=== PATIENT | male | born 1975 | race African-American/Black ===

== ENCOUNTER 2017-01-25 08:31 | Inpatient (IN) | payer OTHER ==
[2017-01-25 10:03] VITALS: BMI 36.4
[2017-01-25] MEDS ORDERED: chlordiazePOXIDE HCL 25 MG CAPSULE PO PRN (11:57)
[2017-01-25] MEDS ORDERED: LOPERAMIDE HCL 2 MG CAPSULE PO PRN (11:57)
[2017-01-25] MEDS ORDERED: hydrOXYzine PAMOATE 50 MG CAPSULE (FP) PO PRN (11:57)
[2017-01-25] MEDS ORDERED: ACETAMINOPHEN 325 MG TABLET (FP) PO PRN (11:57)
[2017-01-25] MEDS ORDERED: guaiFENesin/D-METHORPHAN HB 10 ML UNIT-DOSE CUPS PO PRN (11:57)
[2017-01-25] MEDS ORDERED: MAGNESIUM HYDROX 2400MG/30ML ORAL SUSPENSION 30 ML CUP PO PRN (11:57)
[2017-01-25] MEDS ORDERED: IBUPROFEN 600 MG TABLET (FP) PO PRN (11:57)
[2017-01-25] MEDS ORDERED: P-EPHED 60MG/TRIPROLIDI 2.5MG TABLET PO PRN (11:57)
[2017-01-25] MEDS ORDERED: MAG HYDROX/AL HYDROX/SIMETH 30 ML UNIT-DOSE CUP PO PRN (11:57)
[2017-01-25] MEDS ORDERED: NICOTINE POLACRILEX 4 MG GUM BUC PRN (11:57)
[2017-01-25] MEDS ORDERED: MAGNESIUM CITRATE 300 ML BOTTLE PO PRN (11:57)
[2017-01-25] MEDS ORDERED: MENTHOL/PHENOL 1 EACH UD MM PRN (11:57)
--- NOTE | 2017-01-25 11:57 | HP ---
CIWA Score - CIWA Score Nausea/Vomitin-Mild Nausea/No Vomiting Muscle Tremors: 4-Moderate,w/Arms Extend Anxiety: 3 Agitation: 4-Moderately Restless Paroxysmal Sweats: 3 Orientation: 0-Oriented Tacttile Disturbances: 0-None Auditory Disturbances: 0-None Visual Disturbances: 0-None Headache: 1-Very Mild CIWA-Ar Total Score: 16 Admission ROS BHS - HPI Chief Complaint: I need the help Allergies/Adverse Reactions: Allergies Allergy/AdvReac Type Severity Reaction Status Date / Time No Known Allergies Allergy Verified 01/25/17 10:02 History of Present Illness: Pt is a 41yr old male with a history of alcohol dependence seeking detox for treatment. Exam Limitations: No Limitations - Ebola screening Have you traveled outside of the country in the last 21 days: No Have you had contact with anyone from an Ebola affected area: No Have you been sick,other than usual withdrawal symptoms: No Do you have a fever: No - Review of Systems Constitutional: Chills, Diaphoresis, Night Sweats, Changes in sleep EENT: reports: No Symptoms Reported Respiratory: reports: No Symptoms reported Cardiac: reports: No Symptoms Reported GI: reports: Diarrhea, Poor Fluid Intake, Indigestion : reports: No Symptoms Reported Musculoskeletal: reports: Back Pain, Joint Pain Integumentary: reports: Flushing, Sweating Neuro: reports: Tingling, Tremors Endocrine: reports: Flushing Hematology: reports: No Symptoms Reported Psychiatric: reports: Judgement Intact, Mood/Affect Appropiate, Orientated x3, Agitated, Anxious Other Systems: Reviewed and Negative Patient History - Patient Medical History Hx Anemia: No Hx Asthma: No Hx Chronic Obstructive Pulmonary Disease (COPD): No Hx Cancer: No Hx Cardiac Disorders: No Hx Congestive Heart Failure: No Hx Hypertension: No Hx Hypercholesterolemia: No Hx Pacemaker: No HX Cerebrovascular Accident: No Hx Seizures: No Hx Dementia: No Hx Diabetes: No Hx Gastrointestinal Disorders: No Hx Liver Disease: No Hx Genitourinary Disorders: No Hx Sexually Transmitted Disorders: No Hx Renal Disease (ESRD): No Hx Thyroid Disease: No Hx Human Immunodeficiency Virus (HIV): No (negative) Hx Hepatitis C: No (negative) Hx Depression: Yes Hx Suicide Attempt: No Hx Bipolar Disorder: No Hx Schizophrenia: No Other Medical History: insomnia/anxiety - Patient Surgical History Past Surgical History: No Hx Neurologic Surgery: No Hx Cataract Extraction: No Hx Cardiac Surgery: No Hx Lung Surgery: No Hx Breast Surgery: No Hx Breast Biopsy: No Hx Abdominal Surgery: No Hx Appendectomy: No Hx Cholecystectomy: No Hx Genitourinary Surgery: No Hx Section: No Hx Orthopedic Surgery: No Anesthesia Reaction: No - PPD History Previous Implant?: Yes Documented Results: Negative w/proof Implanted On Prior [facility] Admission?: Yes Date: 11/21/15 PPD to be Administered?: Yes - Reproductive History Patient is a Female of Child Bearing Age (11 -55 yrs old): No - Smoking Cessation Smoking history: Current every day smoker Have you smoked in the past 12 months: Yes Aproximately how many cigarettes per day: 10 Hx Chewing Tobacco Use: No Initiated information on smoking cessation: Yes 'Breaking Loose' booklet given: 01/25/17 - Substance & Tx. History Hx Alcohol Use: Yes Hx Substance Use: No Substance Use Type: Alcohol Hx Substance Use Treatment: Yes (last detox [facility] 01/2016) - Substances Abused Alcohol Route: Oral Frequency: Daily Amount used: beer(2-3 6pks-12 oz) Age of first use: 17 Date of Last Use: 01/25/17 Family Disease History - Family Disease History Family Disease History: CA: Father (LUNG,ALCOHOLIC), Mother (BREAST) Admission Physical Exam BHS - Vital Signs Vital Signs: Vital Signs - 24 hr 01/25/17 10:01 Temperature 97.9 F Pulse Rate 108 H Respiratory 20 Rate Blood Pressure 140/72 - Physical General Appearance: Yes: Appropriately Dressed, Obese, Tremorous, Sweating, Anxious HEENTM: Yes: Hearing grossly Normal Respiratory: Yes: Lungs Clear, Normal Breath Sounds, No Respiratory Distress Neck: Yes: No masses,lesions,Nodules Breast: Yes: Within Normal Limits Cardiology: Yes: Regular Rhythm, Regular Rate, S1, S2 Abdominal: Yes: Normal Bowel Sounds, Non Tender, Soft Genitourinary: Yes: Within Normal Limits Back: Yes: Normal Inspection Musculoskeletal: Yes: full range of Motion, Back pain Extremities: Yes: Normal Capillary Refill, Tremors Neurological: Yes: Fully Oriented, Alert, Normal Response Integumentary: Yes: Normal Color Lymphatic: Yes: Within Normal Limits - Diagnostic (1) Alcohol dependence with uncomplicated withdrawal Current Visit: Yes Status: Chronic (2) Nicotine dependence Current Visit: Yes Status: Chronic Qualifiers: Nicotine product type: cigarettes Substance use status: uncomplicated Qualified Code(s): F17.210 - Nicotine dependence, cigarettes, uncomplicated (3) Chronic back pain Current Visit: Yes Status: Chronic Qualifiers: Back pain location: low back pain Back pain laterality: bilateral Sciatica presence: without sciatica Qualified Code(s): M54.5 - Low back pain; G89.29 - Other chronic pain Cleared for Admission [facility] - Detox or Rehab [facility] Level of Care: Medically Managed Detox Regimen/Protocol: Librium [facility] Breath Alcohol Content Breath Alcohol Content: 0 Urine Drug Screen - Results Drug Screen Negative: Yes
[2017-01-25] MEDS ORDERED: chlordiazePOXIDE HCL 25 MG CAPSULE PO ONE (13:03)
--- NOTE | 2017-01-25 14:50 | EKG ---
Test Reason : Blood Pressure : / mmHG Vent. Rate : 088 BPM Atrial Rate : 088 BPM P-R Int : 124 ms QRS Dur : 090 ms QT Int : 368 ms P-R-T Axes : 064 022 028 degrees QTc Int : 445 ms NORMAL SINUS RHYTHM NORMAL ECG NO PREVIOUS ECGS AVAILABLE Confirmed by DENNY YAÑEZ MD ([id number]) on 01/25/2017 2:49:30 PM Referred By: Lamont Kilpatrick Confirmed By:DENNY YAÑEZ MD
[2017-01-25 17:02] LABS: URINE APPEARANCE CLEAR; URINE BILIRUBIN NEGATIVE (NEGATIVE); URINE BLOOD 1+ (NEGATIVE); URINE COLOR YELLOW; URINE GLUCOSE (UA) NEGATIVE (NEGATIVE); URINE KETONE NEGATIVE (NEGATIVE); URINE LEUK ESTERASE NEGATIVE (NEGATIVE); URINE NITRITE NEGATIVE (NEGATIVE); URINE PROTEIN NEGATIVE (NEGATIVE); URINE UROBILINOGEN NEGATIVE mg/dL (0.2-1.0)
--- NOTE | 2017-01-25 17:19 | CONSULT ---
[facility] Psychiatric Consult - Data Date of interview: 01/25/17 Admission source: [facility] Identifying data: Another admission to [facility] for this 41 y/o AA male seeking detox treatment on for alcohol dependence.Patient is single,a father of two,domiciled,unemployed and supported on food stamps. Substance Abuse History: Fully discussed with the patient in this session.Mr Lane confirms this report. Smoking Cessation. Smoking history: Current every day smoker. Have you smoked in the past 12 months: Yes. Aproximately how many cigarettes per day: 10. Hx Chewing Tobacco Use: No. Initiated information on smoking cessation: Yes. 'Breaking Loose' booklet given: . - Substance & Tx. History. Hx Alcohol Use: Yes. Hx Substance Use: No. Substance Use Type: Alcohol. Hx Substance Use Treatment: Yes (last detox [facility] 01/2016). - Substances Abused. Alcohol. Route: Oral. Frequency: Daily. Amount used: beer(2-3 6pks-12 oz). Age of first use: 17. Date of Last Use: 01/25/17 Medical History: Patient endorses good general health.Noted history of herpes genitalis. Psychiatric History: No reported history of psychiatric hospitalizations.Patient endorses the diagnosis of MDD.Outpatient psychiatric services are rendered at [facility] in the [place].Maintained on remeron 45 mg/hs.Last took that medication a week ago as per self-report.Mr Lane admits to a history of one suicide attempt via wrist- cutting (2001). Physical/Sexual Abuse/Trauma History: Patient denies. Additional Comment: Drug Screen is negative. Mental Status Exam - Mental Status Exam Alert and Oriented to: Time, Place, Person Cognitive Function: Good Patient Appearance: Well Groomed Mood: Hopeful, Euthymic Affect: Appropriate, Normal Range Patient Behavior: Appropriate, Cooperative Speech Pattern: Clear Voice Loudness: Normal Thought Process: Goal Oriented Thought Disorder: Not Present Hallucinations: Denies Homicidal Ideation: Denies Insight/Judgement: Poor Sleep: Poorly, Difficulty falling asleep Appetite: Good Muscle strength/Tone: Normal Gait/Station: Normal Psychiatric Findings - Problem List ([place] 1, 2,3) (1) Alcohol dependence with uncomplicated withdrawal Current Visit: Yes Status: Acute (2) Nicotine dependence Current Visit: Yes Status: Acute Qualifiers: Nicotine product type: cigarettes Substance use status: uncomplicated Qualified Code(s): F17.210 - Nicotine dependence, cigarettes, uncomplicated (3) Substance induced mood disorder Current Visit: Yes Status: Acute (4) Chronic back pain Current Visit: Yes Status: Chronic Qualifiers: Back pain location: low back pain Back pain laterality: bilateral Sciatica presence: without sciatica Qualified Code(s): M54.5 - Low back pain; G89.29 - Other chronic pain (5) Insomnia Current Visit: Yes Status: Acute - Initial Treatment Plan Initial Treatment Plan: Psychoeducation.Detoxification.Remeron 15 mg po hs.Side effects/benefits discussed with the patient.Titration to follow as clinically indicated.He agrees with this careplan.Observation.Review of recent pharmacy claims shows that the last script for 45 mg of remeron was filled at [facility] on 11/18/16.Adherence remains questionable.
[2017-01-25] MEDS: chlordiazePOXIDE HCL 25 MG CAPSULE PO SCH ×2 (17:24→22:05)
[2017-01-25 18:48] LABS: URINE MUCUS RARE; URINE RBC 2 /hpf (0-3)
[2017-01-25] MEDS: THIAMINE HCL 100 MG TABLET (FP) PO SCH (22:05)
[2017-01-25] MEDS: MIRTAZAPINE 15 MG TABLET (FP) PO SCH (22:05)
[2017-01-26] MEDS: chlordiazePOXIDE HCL 25 MG CAPSULE PO SCH ×4 (05:29→22:02)
[2017-01-26 10:03] LABS: MCH 28.3 pg (25.7-33.7); MEAN CELL VOLUME 88.5 fl (80-96); MEAN PLT VOLUME 9.5 fl (7.5-11.1); PLATELET COUNT 246 K/MM3 (134-434); RDW 12.9 % (11.9-15.9); WHITE BLOOD COUNT 8.3 K/mm3 (4.0-10.0)
[2017-01-26 10:35] LABS: ALK PHOS 93 U/L (45-117); ANION GAP 8 (8-16); BILIRUBIN,TOTAL 0.5 mg/dL (0.2-1.0); CALCIUM 9.5 mg/dL (8.5-10.1); CO2 27 mmol/L (21-32); CREATININE 1.3 mg/dL (0.7-1.3); GLUCOSE,RANDOM 94 mg/dL (74-106); SGOT/AST 25 U/L (15-37); SGPT/ALT 34 U/L (12-78); TOT PROT 8.2 g/dl (6.4-8.2)
[2017-01-26] MEDS: NICOTINE 21 MG/24 HOURS TOPICAL PATCH TD SCH (10:41)
[2017-01-26] MEDS: PRENATAL VITAMINS W/ FOLIC ACID TABLET (FP) PO SCH (10:41)
--- NOTE | 2017-01-26 10:57 | PN ---
[facility] CIWA - CIWA Score Nausea/Vomitin-No Nausea/No Vomiting Muscle Tremors: 4-Moderate,w/Arms Extend Anxiety: 4-Mod. Anxious/Guarded Agitation: 4-Moderately Restless Paroxysmal Sweats: 1-Minimal Palms Moist Orientation: 0-Oriented Tacttile Disturbances: 3-Moderate Itch/Numb/Burn Auditory Disturbances: 0-None Visual Disturbances: 0-None Headache: 0-None Present CIWA-Ar Total Score: 16 S Progress Note (SOAP) Subjective: ANXIETY,TREMORS,SWEATS,INTERMITTENT SLEEP. Objective: 01/26/17 10:56 Vital Signs Temperature 97.8 F 01/26/17 09:27 Pulse Rate 76 01/26/17 09:27 Respiratory Rate 18 01/26/17 09:27 Blood Pressure 117/82 01/26/17 09:27 O2 Sat by Pulse Oximetry (%) Laboratory Last Values WBC 8.3 K/mm3 (4.0-10.0) D 01/26/17 06:00 RBC 5.25 M/mm3 (4.00-5.60) 01/26/17 06:00 Hgb 14.9 GM/dL (11.7-16.9) 01/26/17 06:00 Hct 46.5 % (35.4-49) 01/26/17 06:00 MCV 88.5 fl (80-96) 01/26/17 06:00 MCH 28.3 pg (25.7-33.7) 01/26/17 06:00 MCHC 32.0 g/dl (32.0-35.9) 01/26/17 06:00 RDW 12.9 % (11.9-15.9) 01/26/17 06:00 Plt Count 246 K/MM3 (134-434) 01/26/17 06:00 MPV 9.5 fl (7.5-11.1) 01/26/17 06:00 Sodium 140 mmol/L (136-145) 01/26/17 06:00 Potassium 4.4 mmol/L (3.5-5.1) 01/26/17 06:00 Chloride 105 mmol/L (98-107) 01/26/17 06:00 Carbon Dioxide 27 mmol/L (21-32) 01/26/17 06:00 Anion Gap 8 (8-16) 01/26/17 06:00 BUN 9 mg/dL (7-18) D 01/26/17 06:00 Creatinine 1.3 mg/dL (0.7-1.3) D 01/26/17 06:00 Creat Clearance w eGFR > 60 (>60) 01/26/17 06:00 Random Glucose 94 mg/dL (74-106) 01/26/17 06:00 Calcium 9.5 mg/dL (8.5-10.1) 01/26/17 06:00 Total Bilirubin 0.5 mg/dL (0.2-1.0) D 01/26/17 06:00 AST 25 U/L (15-37) D 01/26/17 06:00 ALT 34 U/L (12-78) D 01/26/17 06:00 Alkaline Phosphatase 93 U/L (45-117) D 01/26/17 06:00 Total Protein 8.2 g/dl (6.4-8.2) D 01/26/17 06:00 Albumin 4.0 g/dl (3.4-5.0) 01/26/17 06:00 Urine Color Yellow 01/25/17 14:00 Urine Appearance Clear 01/25/17 14:00 Urine pH 6.0 (5.0-8.0) 01/25/17 14:00 Ur Specific [place] 1.015 (1.005-1.025) 01/25/17 14:00 Urine Protein Negative (NEGATIVE) 01/25/17 14:00 Urine Glucose (UA) Negative (NEGATIVE) 01/25/17 14:00 Urine Ketones Negative (NEGATIVE) 01/25/17 14:00 Urine Blood 1+ (NEGATIVE) H 01/25/17 14:00 Urine Nitrite Negative (NEGATIVE) 01/25/17 14:00 Urine Bilirubin Negative (NEGATIVE) 01/25/17 14:00 Urine Urobilinogen Negative mg/dL (0.2-1.0) 01/25/17 14:00 Ur Leukocyte Esterase Negative (NEGATIVE) 01/25/17 14:00 Urine RBC 2 /hpf (0-3) 01/25/17 14:00 Urine WBC None /hpf (3-5) 01/25/17 14:00 Ur Epithelial Cells Rare /hpf (FEW) 01/25/17 14:00 Urine Mucus Rare 01/25/17 14:00 Assessment: 01/26/17 10:57 WITHDRAWAL SX Plan: CONTINUE DETOX
[2017-01-26] MEDS: THIAMINE HCL 100 MG TABLET (FP) PO SCH (22:01)
[2017-01-26] MEDS: MIRTAZAPINE 15 MG TABLET (FP) PO SCH (22:01)
[2017-01-27] MEDS: chlordiazePOXIDE HCL 25 MG CAPSULE PO SCH ×2 (05:29→10:23)
[2017-01-27] MEDS: PRENATAL VITAMINS W/ FOLIC ACID TABLET (FP) PO SCH (10:23)
[2017-01-27] MEDS: NICOTINE 21 MG/24 HOURS TOPICAL PATCH TD SCH (10:24)
--- NOTE | 2017-01-27 10:29 | PN ---
[facility] CIWA - CIWA Score Nausea/Vomitin-No Nausea/No Vomiting Muscle Tremors: 4-Moderate,w/Arms Extend Anxiety: 4-Mod. Anxious/Guarded Agitation: 4-Moderately Restless Paroxysmal Sweats: 1-Minimal Palms Moist Orientation: 0-Oriented Tacttile Disturbances: 3-Moderate Itch/Numb/Burn Auditory Disturbances: 0-None Visual Disturbances: 0-None Headache: 0-None Present CIWA-Ar Total Score: 16 BHS Progress Note (SOAP) Subjective: ANXIETY,SWEATS,TREMORS,NAUSEA. Objective: 01/27/17 10:26 Vital Signs Temperature 97.5 F L 01/27/17 06:18 Pulse Rate 83 01/27/17 06:18 Respiratory Rate 18 01/27/17 06:18 Blood Pressure 112/79 01/27/17 06:18 O2 Sat by Pulse Oximetry (%) Laboratory Last Values WBC 8.3 K/mm3 (4.0-10.0) D 01/26/17 06:00 RBC 5.25 M/mm3 (4.00-5.60) 01/26/17 06:00 Hgb 14.9 GM/dL (11.7-16.9) 01/26/17 06:00 Hct 46.5 % (35.4-49) 01/26/17 06:00 MCV 88.5 fl (80-96) 01/26/17 06:00 MCH 28.3 pg (25.7-33.7) 01/26/17 06:00 MCHC 32.0 g/dl (32.0-35.9) 01/26/17 06:00 RDW 12.9 % (11.9-15.9) 01/26/17 06:00 Plt Count 246 K/MM3 (134-434) 01/26/17 06:00 MPV 9.5 fl (7.5-11.1) 01/26/17 06:00 Sodium 140 mmol/L (136-145) 01/26/17 06:00 Potassium 4.4 mmol/L (3.5-5.1) 01/26/17 06:00 Chloride 105 mmol/L (98-107) 01/26/17 06:00 Carbon Dioxide 27 mmol/L (21-32) 01/26/17 06:00 Anion Gap 8 (8-16) 01/26/17 06:00 BUN 9 mg/dL (7-18) D 01/26/17 06:00 Creatinine 1.3 mg/dL (0.7-1.3) D 01/26/17 06:00 Creat Clearance w eGFR > 60 (>60) 01/26/17 06:00 Random Glucose 94 mg/dL (74-106) 01/26/17 06:00 Calcium 9.5 mg/dL (8.5-10.1) 01/26/17 06:00 Total Bilirubin 0.5 mg/dL (0.2-1.0) D 01/26/17 06:00 AST 25 U/L (15-37) D 01/26/17 06:00 ALT 34 U/L (12-78) D 01/26/17 06:00 Alkaline Phosphatase 93 U/L (45-117) D 01/26/17 06:00 Total Protein 8.2 g/dl (6.4-8.2) D 01/26/17 06:00 Albumin 4.0 g/dl (3.4-5.0) 01/26/17 06:00 Urine Color Yellow 01/25/17 14:00 Urine Appearance Clear 01/25/17 14:00 Urine pH 6.0 (5.0-8.0) 01/25/17 14:00 Ur Specific [place] 1.015 (1.005-1.025) 01/25/17 14:00 Urine Protein Negative (NEGATIVE) 01/25/17 14:00 Urine Glucose (UA) Negative (NEGATIVE) 01/25/17 14:00 Urine Ketones Negative (NEGATIVE) 01/25/17 14:00 Urine Blood 1+ (NEGATIVE) H 01/25/17 14:00 Urine Nitrite Negative (NEGATIVE) 01/25/17 14:00 Urine Bilirubin Negative (NEGATIVE) 01/25/17 14:00 Urine Urobilinogen Negative mg/dL (0.2-1.0) 01/25/17 14:00 Ur Leukocyte Esterase Negative (NEGATIVE) 01/25/17 14:00 Urine RBC 2 /hpf (0-3) 01/25/17 14:00 Urine WBC None /hpf (3-5) 01/25/17 14:00 Ur Epithelial Cells Rare /hpf (FEW) 01/25/17 14:00 Urine Mucus Rare 01/25/17 14:00 RPR Titer Nonreactive (NONREACTIVE) 01/26/17 06:00 Assessment: 01/27/17 10:26 WITHDRAWAL SX CHRIS JONES DIRECTED. Plan: CONTINUE DETOX
[2017-01-27] MEDS: chlordiazePOXIDE 5 MG CAPSULE PO SCH ×2 (16:50→22:19)
[2017-01-27] MEDS: THIAMINE HCL 100 MG TABLET (FP) PO SCH (22:19)
[2017-01-27] MEDS: diphenhydrAMINE HCL 50 MG CAPSULE PO PRN (22:19)
[2017-01-27] MEDS: MIRTAZAPINE 15 MG TABLET (FP) PO SCH (22:19)
[2017-01-28] MEDS: chlordiazePOXIDE 5 MG CAPSULE PO SCH ×2 (05:39→10:25)
[2017-01-28] MEDS: NICOTINE 21 MG/24 HOURS TOPICAL PATCH TD SCH (10:25)
[2017-01-28] MEDS: PRENATAL VITAMINS W/ FOLIC ACID TABLET (FP) PO SCH (10:25)
[2017-01-28] MEDS: RANITIDINE HCL 150 MG TABLET (FP) PO SCH ×2 (12:34→22:28)
--- NOTE | 2017-01-28 13:18 | PN ---
[facility] Progress Note (SOAP) Subjective: Interrupted sleep, Stomach Cramping, Diarrhea, Body Aches, Tremors. Objective: PT. A & O X 3, OBSERVED AMBULATING ON UNIT. NO ACUTE DISTRESS. 01/28/17 13:16 Vital Signs Temperature 97.0 F L 01/28/17 09:09 Pulse Rate 71 01/28/17 09:09 Respiratory Rate 16 01/28/17 09:09 Blood Pressure 122/80 01/28/17 09:09 O2 Sat by Pulse Oximetry (%) Laboratory Tests 01/25/17 01/26/17 01/26/17 14:00 06:00 06:00 WBC 8.3 D RBC 5.25 Hgb 14.9 Hct 46.5 MCV 88.5 MCH 28.3 MCHC 32.0 RDW 12.9 Plt Count 246 MPV 9.5 Sodium 140 Potassium 4.4 Chloride 105 Carbon Dioxide 27 Anion Gap 8 BUN 9 D Creatinine 1.3 D Creat Clearance w eGFR > 60 Random Glucose 94 Calcium 9.5 Total Bilirubin 0.5 D AST 25 D ALT 34 D Alkaline Phosphatase 93 D Total Protein 8.2 D Albumin 4.0 Urine Color Yellow Urine Appearance Clear Urine pH 6.0 Ur Specific [place] 1.015 Urine Protein Negative Urine Glucose (UA) Negative Urine Ketones Negative Urine Blood 1+ H Urine Nitrite Negative Urine Bilirubin Negative Urine Urobilinogen Negative Ur Leukocyte Esterase Negative Urine RBC 2 Urine WBC None Ur Epithelial Cells Rare Urine Mucus Rare RPR Titer 01/26/17 06:00 WBC RBC Hgb Hct MCV MCH MCHC RDW Plt Count MPV Sodium Potassium Chloride Carbon Dioxide Anion Gap BUN Creatinine Creat Clearance w eGFR Random Glucose Calcium Total Bilirubin AST ALT Alkaline Phosphatase Total Protein Albumin Urine Color Urine Appearance Urine pH Ur Specific [place] Urine Protein Urine Glucose (UA) Urine Ketones Urine Blood Urine Nitrite Urine Bilirubin Urine Urobilinogen Ur Leukocyte Esterase Urine RBC Urine WBC Ur Epithelial Cells Urine Mucus RPR Titer Nonreactive LABS NOTED. Assessment: 01/28/17 13:16 WITHDRAWAL SYMPTOMS. Plan: CONTINUE DETOX. PRN IMMODIUM FOR DIARRHEA.
[2017-01-28] MEDS: chlordiazePOXIDE HCL 10 MG CAPSULE PO SCH ×2 (17:44→22:28)
[2017-01-28] MEDS: THIAMINE HCL 100 MG TABLET (FP) PO SCH (22:28)
[2017-01-28] MEDS: MIRTAZAPINE 15 MG TABLET (FP) PO SCH (22:28)
[2017-01-28] MEDS: diphenhydrAMINE HCL 50 MG CAPSULE PO PRN (22:28)
[2017-01-29] MEDS: chlordiazePOXIDE HCL 10 MG CAPSULE PO SCH (05:45)
[2017-01-29 09:38] VITALS: BP 118/82; PULSE 83; TEMP 96.7
[2017-01-29] MEDS: RANITIDINE HCL 150 MG TABLET (FP) PO SCH (09:53)
[2017-01-29] MEDS: NICOTINE 21 MG/24 HOURS TOPICAL PATCH TD SCH (09:53)
[2017-01-29] MEDS: PRENATAL VITAMINS W/ FOLIC ACID TABLET (FP) PO SCH (09:53)
--- NOTE | 2017-01-29 12:59 | DS ---
[facility] Detox Discharge Summary Admission Date: 01/25/17 Discharge Date: 01/29/17 - History Present History: Alcohol Dependence Pertinent Past History: GERD - Physical Exam Results Vital Signs: Vital Signs Temperature 96.7 F L 01/29/17 09:37 Pulse Rate 83 01/29/17 09:37 Respiratory Rate 18 01/29/17 09:37 Blood Pressure 118/82 01/29/17 09:37 O2 Sat by Pulse Oximetry (%) Pertinent Admission Physical Exam Findings: Withdrawal symptoms Laboratory Tests 01/25/17 01/26/17 01/26/17 14:00 06:00 06:00 WBC 8.3 D RBC 5.25 Hgb 14.9 Hct 46.5 MCV 88.5 MCH 28.3 MCHC 32.0 RDW 12.9 Plt Count 246 MPV 9.5 Sodium 140 Potassium 4.4 Chloride 105 Carbon Dioxide 27 Anion Gap 8 BUN 9 D Creatinine 1.3 D Creat Clearance w eGFR > 60 Random Glucose 94 Calcium 9.5 Total Bilirubin 0.5 D AST 25 D ALT 34 D Alkaline Phosphatase 93 D Total Protein 8.2 D Albumin 4.0 Urine Color Yellow Urine Appearance Clear Urine pH 6.0 Ur Specific [place] 1.015 Urine Protein Negative Urine Glucose (UA) Negative Urine Ketones Negative Urine Blood 1+ H Urine Nitrite Negative Urine Bilirubin Negative Urine Urobilinogen Negative Ur Leukocyte Esterase Negative Urine RBC 2 Urine WBC None Ur Epithelial Cells Rare Urine Mucus Rare RPR Titer 01/26/17 06:00 WBC RBC Hgb Hct MCV MCH MCHC RDW Plt Count MPV Sodium Potassium Chloride Carbon Dioxide Anion Gap BUN Creatinine Creat Clearance w eGFR Random Glucose Calcium Total Bilirubin AST ALT Alkaline Phosphatase Total Protein Albumin Urine Color Urine Appearance Urine pH Ur Specific [place] Urine Protein Urine Glucose (UA) Urine Ketones Urine Blood Urine Nitrite Urine Bilirubin Urine Urobilinogen Ur Leukocyte Esterase Urine RBC Urine WBC Ur Epithelial Cells Urine Mucus RPR Titer Nonreactive Labs noted - Treatment Hospital Course: Detox Protocol Followed, Detoxed Safely, Responded well, Discharged Condition Good - Medication Discharge Medications: Ambulatory Orders Mirtazapine [Remeron -] 30 mg PO DAILY #30 tablet 01/25/17 Mirtazapine [Remeron -] 45 mg PO HS 01/25/17 - Diagnosis (1) Alcohol dependence with uncomplicated withdrawal Status: Acute (2) Nicotine dependence Status: Chronic Qualifiers: Nicotine product type: cigarettes Substance use status: uncomplicated Qualified Code(s): F17.210 - Nicotine dependence, cigarettes, uncomplicated (3) Depressive disorder Status: Chronic (4) GERD (gastroesophageal reflux disease) Status: Chronic - AMA Did Patient Leave Against Medical Advice: No
== END 2017-01-29 10:12 | disposition home or self-care (01) | DRG 775 ==
LOC: YASAS 08:31 → Y3N 12:47
PROVIDERS: ADMIT Internal Medicine; ATTEND Internal Medicine
PROC: HZ2ZZZZ Detoxification Services for Substance Abuse Treatment (ICD-10-PCS; principal; 2017-01-25)
DX: F10.230 Alcohol dependence with withdrawal, uncomplicated (principal); F17.210 Nicotine dependence, cigarettes, uncomplicated; F19.24 Other psychoactive substance dependence with psychoactive substance-induced mood disorder; F32.9 Major depressive disorder, single episode, unspecified; K21.9 Gastro-esophageal reflux disease without esophagitis; M54.5 Low back pain; G89.29 Other chronic pain; E66.9 Obesity, unspecified; Z68.36 Body mass index [BMI] 36.0-36.9, adult
CPT/HCPCS: 36415; 80053; 81003; 81015; 85027; 86593; 93005; 93010

== ENCOUNTER 2017-02-07 12:43 | Inpatient (IN) | payer OTHER ==
[2017-02-07 14:16] VITALS: BMI 37.8
--- NOTE | 2017-02-07 19:35 | HP ---
Admission ROS [facility] - [facility] Chief Complaint: I WANT TO GO TO REHAB Allergies/Adverse Reactions: Allergies Allergy/AdvReac Type Severity Reaction Status Date / Time No Known Allergies Allergy Verified 01/25/17 10:02 History of Present Illness: 42 YEARS OLD MALE WITH LONG HISTORY OF ALCOHOL NICOTINE DEPENDENCE DENIES MEDICAL ISSUE HAS DEPRESSION IS ADMITTED TO REHAB Exam Limitations: No Limitations - Ebola screening Have you traveled outside of the country in the last 21 days: No Have you had contact with anyone from an Ebola affected area: No Have you been sick,other than usual withdrawal symptoms: No Do you have a fever: No - Review of Systems Constitutional: Weight Stable EENT: reports: No Symptoms Reported Respiratory: reports: No Symptoms reported Cardiac: reports: No Symptoms Reported GI: reports: No Symptoms Reported : reports: No Symptoms Reported Musculoskeletal: reports: Back Pain Integumentary: reports: No Symptoms Reported Neuro: reports: No Symptoms reported Endocrine: reports: No Symptoms Reported Hematology: reports: No Symptoms Reported Psychiatric: reports: Judgement Intact, Orientated x3, Depressed Other Systems: Reviewed and Negative Patient History - Patient Medical History Hx Anemia: No Hx Asthma: No Hx Chronic Obstructive Pulmonary Disease (COPD): No Hx Cancer: No Hx Cardiac Disorders: No Hx Congestive Heart Failure: No Hx Hypertension: No Hx Hypercholesterolemia: No Hx Pacemaker: No HX Cerebrovascular Accident: No Hx Seizures: No Hx Dementia: No Hx Diabetes: No Hx Gastrointestinal Disorders: No Hx Liver Disease: No Hx Genitourinary Disorders: No Hx Sexually Transmitted Disorders: No Hx Renal Disease (ESRD): No Hx Thyroid Disease: No Hx Human Immunodeficiency Virus (HIV): No (negative) Hx Hepatitis C: No (negative) Hx Depression: Yes Hx Suicide Attempt: No Hx Bipolar Disorder: No Hx Schizophrenia: No - Patient Surgical History Past Surgical History: No Hx Neurologic Surgery: No Hx Cataract Extraction: No Hx Cardiac Surgery: No Hx Lung Surgery: No Hx Breast Surgery: No Hx Breast Biopsy: No Hx Abdominal Surgery: No Hx Appendectomy: No Hx Cholecystectomy: No Hx Genitourinary Surgery: No Hx Orthopedic Surgery: No - PPD History Previous Implant?: Yes Documented Results: Negative w/proof Implanted On Prior R Admission?: Yes Date: 01/27/17 Results: 0 mm PPD to be Administered?: No - Smoking Cessation Smoking history: Current every day smoker Have you smoked in the past 12 months: Yes Aproximately how many cigarettes per day: 5 Hx Chewing Tobacco Use: No Initiated information on smoking cessation: Yes 'Breaking Loose' booklet given: 02/07/17 - Substance & Tx. History Hx Alcohol Use: Yes Hx Substance Use: No Substance Use Type: Alcohol Hx Substance Use Treatment: Yes (01/25-01/29/17 [facility]) - Substances Abused Alcohol-beer Route: Oral Frequency: Daily Amount used: 2-3 6 pks. Age of first use: 17 Date of Last Use: 01/25/17 Family Disease History - Family Disease History Family Disease History: CA: Father (LUNG,ALCOHOLIC), Mother (BREAST) Admission Physical Exam [facility] - Vital Signs Vital Signs: Vital Signs - 24 hr 02/07/17 14:15 Temperature 98.6 F Pulse Rate 98 H Respiratory 18 Rate Blood Pressure 132/80 - Physical General Appearance: Yes: No Apparent Distress, Appropriately Dressed, Obese HEENTM: Yes: Hearing grossly Normal, Normal ENT Inspection, Normocephalic, Normal Voice Respiratory: Yes: Chest Non-Tender, Lungs Clear, Normal Breath Sounds, No Respiratory Distress, No Accessory Muscle Use Neck: Yes: Supple, Trachea in good position Breast: Yes: Breasts Symetrical Cardiology: Yes: Regular Rhythm, S1, S2, Tachycardia Abdominal: Yes: Non Tender, Soft Genitourinary: Yes: Within Normal Limits Back: Yes: Normal Inspection Musculoskeletal: Yes: full range of Motion, Gait Steady, Back pain Extremities: Yes: Normal Range of Motion, Non-Tender Neurological: Yes: Fully Oriented, Alert, Motor Strength 5/5, Normal Response, Depressed Affect Integumentary: Yes: Warm Lymphatic: Yes: Within Normal Limits - Diagnostic (1) Alcohol dependence with uncomplicated withdrawal Current Visit: Yes Status: Acute (2) Chronic back pain Current Visit: Yes Status: Chronic Qualifiers: Back pain location: low back pain Back pain laterality: bilateral Sciatica presence: without sciatica Qualified Code(s): M54.5 - Low back pain; G89.29 - Other chronic pain (3) Depressive disorder Current Visit: Yes Status: Suspected (4) Nicotine dependence Current Visit: Yes Status: Acute Qualifiers: Nicotine product type: cigarettes Substance use status: in withdrawal Qualified Code(s): F17.213 - Nicotine dependence, cigarettes, with withdrawal Cleared for Admission [facility] - Detox or Rehab [facility] Level of Care: Observation Bed Detox Regimen/Protocol: Not Applicable Claeared for Rehab Admission: Yes [facility] Breath Alcohol Content Breath Alcohol Content: 0 Urine Drug Screen - Results Drug Screen Negative: No Urine Drug Screen Results: BZO-Benzodiazepines
[2017-02-07] MEDS ORDERED: ACETAMINOPHEN 325 MG TABLET (FP) PO PRN (19:36)
[2017-02-07] MEDS ORDERED: MENTHOL/PHENOL 1 EACH UD MM PRN (19:36)
[2017-02-07] MEDS ORDERED: guaiFENesin/D-METHORPHAN HB 10 ML UNIT-DOSE CUPS PO PRN (19:36)
[2017-02-07] MEDS ORDERED: IBUPROFEN 400 MG TABLET (FP) PO PRN (19:36)
[2017-02-07] MEDS ORDERED: P-EPHED 60MG/TRIPROLIDI 2.5MG TABLET PO PRN (19:36)
[2017-02-07] MEDS ORDERED: NICOTINE POLACRILEX 2 MG GUM BC PRN (19:36)
[2017-02-07] MEDS ORDERED: MAGNESIUM CITRATE 300 ML BOTTLE PO PRN (19:36)
[2017-02-07] MEDS ORDERED: LOPERAMIDE HCL 2 MG CAPSULE PO PRN (19:36)
[2017-02-07] MEDS ORDERED: MAG HYDROX/AL HYDROX/SIMETH 30 ML UNIT-DOSE CUP PO PRN (19:36)
[2017-02-07] MEDS ORDERED: MAGNESIUM HYDROX 2400MG/30ML ORAL SUSPENSION 30 ML CUP PO PRN (19:36)
[2017-02-07] MEDS ORDERED: hydrOXYzine PAMOATE 50 MG CAPSULE (FP) PO PRN (19:36)
[2017-02-07] MEDS: THIAMINE HCL 100 MG TABLET (FP) PO SCH (22:15)
[2017-02-07] MEDS: LIDOCAINE PATCH REMOVAL MC SCH (22:15)
[2017-02-08 10:17] LABS: MCH 28.3 pg (25.7-33.7); MCHC 31.8 g/dl (32.0-35.9); MEAN PLT VOLUME 8.9 fl (7.5-11.1); PLATELET COUNT 266 K/MM3 (134-434); RDW 13.5 % (11.9-15.9); WHITE BLOOD COUNT 8.6 K/mm3 (4.0-10.0)
[2017-02-08] MEDS: PRENATAL VITAMINS W/ FOLIC ACID TABLET (FP) PO SCH (10:25)
[2017-02-08] MEDS: NICOTINE 14 MG/24 HOURS TOPICAL PATCH TD SCH (10:25)
[2017-02-08] MEDS: LIDOCAINE 5% TOPICAL PATCH TP SCH (10:25)
[2017-02-08 10:30] LABS: ANION GAP 8 (8-16); BILIRUBIN,TOTAL 0.6 mg/dL (0.2-1.0); CALCIUM 9.4 mg/dL (8.5-10.1); CO2 29 mmol/L (21-32); GLUCOSE,RANDOM 88 mg/dL (74-106); SGOT/AST 51 U/L (15-37); SGPT/ALT 68 U/L (12-78)
[2017-02-08 10:32] LABS: ALK PHOS 84 U/L (45-117)
--- NOTE | 2017-02-08 11:35 | EKG ---
Test Reason : Blood Pressure : / mmHG Vent. Rate : 088 BPM Atrial Rate : 088 BPM P-R Int : 128 ms QRS Dur : 090 ms QT Int : 372 ms P-R-T Axes : 064 028 020 degrees QTc Int : 450 ms NORMAL SINUS RHYTHM POSSIBLE LEFT ATRIAL ENLARGEMENT BORDERLINE ECG WHEN COMPARED WITH ECG OF 25-JAN-2017 12:25, NO SIGNIFICANT CHANGE WAS FOUND Confirmed by MARIETTA US MD ([id number]) on 02/08/2017 11:35:22 AM Referred By: Confirmed By:MARIETTA US MD
[2017-02-08] MEDS ORDERED: PNEUMOCOCCAL 23 VACCINE 0.5 ML VIAL IM ONE (12:00)
[2017-02-08] MEDS ORDERED: PNEUMOC 13-VAL CONJ-DIP CRM/PF 0.5 ML DISP.SYRIN IM ONE (12:22)
--- NOTE | 2017-02-08 14:48 | HP ---
Psychiatrist Admission - Data Date of interview: 02/08/17 Admission source: [facility] Identifying data: This is the first admission to [address] [place] [address] for this 42 years old single AA father of 2 (20 and 18 yo), resides at [facility] ,supported by [facility]. Medical History: Significant for GERD,Disk disease. Psychiatric History: Reports anxiety ,some sleeping difficulties since young age.No psychiatric hospitalizations,no suicidal attempts.Patient sees psychiatrist at [facility] in the [place].Patient is currently on Remeron 45 mg po hs. Physical/Sexual Abuse/Trauma History: denies Vital Signs: Vital Signs - 24 hr 02/08/17 02/08/17 00:30 03:30 Respiratory 18 20 Rate Allergies/Adverse Reactions: Allergies Allergy/AdvReac Type Severity Reaction Status Date / Time No Known Allergies Allergy Verified 01/25/17 10:02 Date of last physical exam: 01/25/17 Concur with the findings of this exam: Yes - Substance Abuse/Tx History Hx Alcohol Use: Yes (reports drinking since 17 yo,6 packs of beer daily) Hx Substance Use: No Substance Use Type: Alcohol Hx Substance Use Treatment: Yes (completed [facility] inpatient in [facility] last year, longest abstinence 6 years) - Admission Criteria Previous failed treatment: Yes Poor recovery environment: Yes Comorbidities: Yes Lacks judgement: Yes Mental Status Exam - Mental Status Exam Alert and Oriented to: Time, Place, Person Cognitive Function: Grossly Intact Patient Appearance: Well Groomed Mood: Euthymic Affect: Mood Congruent Patient Behavior: Appropriate, Cooperative Speech Pattern: Clear Voice Loudness: Normal Thought Process: Goal Oriented Hallucinations: Denies Suicidal Ideation: Denies Homicidal Ideation: Denies Insight/Judgement: Fair Sleep: Fair Appetite: Good Muscle strength/Tone: Normal Gait/Station: Normal Psychiatric Findings - Problem List (Anthony 1, 2,3) (1) Substance induced mood disorder Current Visit: Yes Status: Chronic (2) GERD (gastroesophageal reflux disease) Current Visit: Yes Status: Chronic (3) Chronic back pain Current Visit: Yes Status: Chronic Qualifiers: Back pain location: low back pain Back pain laterality: bilateral Sciatica presence: without sciatica Qualified Code(s): M54.5 - Low back pain; G89.29 - Other chronic pain (4) Alcohol dependence Current Visit: Yes Status: Chronic - Initial Treatment Plan Initial Treatment Plan: Remeron 45 mg po hs.Will monitor progress.
[2017-02-08] MEDS: MIRTAZAPINE 15 MG TABLET (FP) PO SCH (21:49)
[2017-02-08] MEDS: THIAMINE HCL 100 MG TABLET (FP) PO SCH (21:49)
[2017-02-08] MEDS: diphenhydrAMINE HCL 50 MG CAPSULE PO PRN (21:49)
[2017-02-08] MEDS: LIDOCAINE PATCH REMOVAL MC SCH (22:00)
[2017-02-09] MEDS: NICOTINE 14 MG/24 HOURS TOPICAL PATCH TD SCH (10:23)
[2017-02-09] MEDS: PRENATAL VITAMINS W/ FOLIC ACID TABLET (FP) PO SCH (10:23)
[2017-02-09] MEDS: LIDOCAINE 5% TOPICAL PATCH TP SCH (10:23)
[2017-02-09] MEDS: diphenhydrAMINE HCL 50 MG CAPSULE PO PRN (22:04)
[2017-02-09] MEDS: THIAMINE HCL 100 MG TABLET (FP) PO SCH (22:04)
[2017-02-09] MEDS: MIRTAZAPINE 15 MG TABLET (FP) PO SCH (22:04)
[2017-02-09] MEDS: LIDOCAINE PATCH REMOVAL MC SCH (22:05)
[2017-02-10] MEDS: LIDOCAINE 5% TOPICAL PATCH TP SCH (10:19)
[2017-02-10] MEDS: PRENATAL VITAMINS W/ FOLIC ACID TABLET (FP) PO SCH (10:19)
[2017-02-10] MEDS: NICOTINE 14 MG/24 HOURS TOPICAL PATCH TD SCH (10:20)
[2017-02-10] MEDS: diphenhydrAMINE HCL 50 MG CAPSULE PO PRN (21:42)
[2017-02-10] MEDS: THIAMINE HCL 100 MG TABLET (FP) PO SCH (21:42)
[2017-02-10] MEDS: MIRTAZAPINE 15 MG TABLET (FP) PO SCH (21:43)
[2017-02-10] MEDS: LIDOCAINE PATCH REMOVAL MC SCH (21:43)
[2017-02-11] MEDS: PRENATAL VITAMINS W/ FOLIC ACID TABLET (FP) PO SCH (10:11)
[2017-02-11] MEDS: LIDOCAINE 5% TOPICAL PATCH TP SCH (10:11)
[2017-02-11] MEDS: NICOTINE 14 MG/24 HOURS TOPICAL PATCH TD SCH (11:36)
[2017-02-11] MEDS: MIRTAZAPINE 15 MG TABLET (FP) PO SCH (21:14)
[2017-02-11] MEDS: THIAMINE HCL 100 MG TABLET (FP) PO SCH (21:14)
[2017-02-11] MEDS: diphenhydrAMINE HCL 50 MG CAPSULE PO PRN (21:15)
[2017-02-11] MEDS: LIDOCAINE PATCH REMOVAL MC SCH (21:45)
[2017-02-12] MEDS: PRENATAL VITAMINS W/ FOLIC ACID TABLET (FP) PO SCH (10:02)
[2017-02-12] MEDS: LIDOCAINE 5% TOPICAL PATCH TP SCH (10:02)
[2017-02-12] MEDS: NICOTINE 14 MG/24 HOURS TOPICAL PATCH TD SCH (10:02)
[2017-02-12] MEDS: diphenhydrAMINE HCL 50 MG CAPSULE PO PRN (21:27)
[2017-02-12] MEDS: THIAMINE HCL 100 MG TABLET (FP) PO SCH (21:27)
[2017-02-12] MEDS: MIRTAZAPINE 15 MG TABLET (FP) PO SCH (21:27)
[2017-02-12] MEDS: LIDOCAINE PATCH REMOVAL MC SCH (21:28)
[2017-02-13] MEDS: PRENATAL VITAMINS W/ FOLIC ACID TABLET (FP) PO SCH (10:09)
[2017-02-13] MEDS: LIDOCAINE 5% TOPICAL PATCH TP SCH (10:10)
[2017-02-13] MEDS: NICOTINE 14 MG/24 HOURS TOPICAL PATCH TD SCH (10:10)
[2017-02-13] MEDS: THIAMINE HCL 100 MG TABLET (FP) PO SCH (21:25)
[2017-02-13] MEDS: MIRTAZAPINE 15 MG TABLET (FP) PO SCH (21:25)
[2017-02-13] MEDS: diphenhydrAMINE HCL 50 MG CAPSULE PO PRN (21:25)
[2017-02-13] MEDS: LIDOCAINE PATCH REMOVAL MC SCH (21:26)
[2017-02-14] MEDS: LIDOCAINE 5% TOPICAL PATCH TP SCH (10:10)
[2017-02-14] MEDS: PRENATAL VITAMINS W/ FOLIC ACID TABLET (FP) PO SCH (10:10)
[2017-02-14] MEDS: NICOTINE 14 MG/24 HOURS TOPICAL PATCH TD SCH (10:10)
[2017-02-14] MEDS: diphenhydrAMINE HCL 50 MG CAPSULE PO PRN (21:34)
[2017-02-14] MEDS: THIAMINE HCL 100 MG TABLET (FP) PO SCH (21:34)
[2017-02-14] MEDS: MIRTAZAPINE 15 MG TABLET (FP) PO SCH (21:34)
[2017-02-14] MEDS: LIDOCAINE PATCH REMOVAL MC SCH (21:36)
[2017-02-15] MEDS: LIDOCAINE 5% TOPICAL PATCH TP SCH (10:16)
[2017-02-15] MEDS: PRENATAL VITAMINS W/ FOLIC ACID TABLET (FP) PO SCH (10:16)
[2017-02-15] MEDS: NICOTINE 14 MG/24 HOURS TOPICAL PATCH TD SCH (10:16)
[2017-02-15] MEDS: diphenhydrAMINE HCL 50 MG CAPSULE PO PRN (21:12)
[2017-02-15] MEDS: MIRTAZAPINE 15 MG TABLET (FP) PO SCH (21:12)
[2017-02-15] MEDS: THIAMINE HCL 100 MG TABLET (FP) PO SCH (21:12)
[2017-02-15] MEDS: LIDOCAINE PATCH REMOVAL MC SCH (21:13)
[2017-02-16] MEDS: LIDOCAINE 5% TOPICAL PATCH TP SCH (10:35)
[2017-02-16] MEDS: PRENATAL VITAMINS W/ FOLIC ACID TABLET (FP) PO SCH (10:35)
[2017-02-16] MEDS: NICOTINE 14 MG/24 HOURS TOPICAL PATCH TD SCH (10:36)
[2017-02-16] MEDS: LIDOCAINE PATCH REMOVAL MC SCH (21:08)
[2017-02-16] MEDS: MIRTAZAPINE 15 MG TABLET (FP) PO SCH (21:08)
[2017-02-16] MEDS: THIAMINE HCL 100 MG TABLET (FP) PO SCH (21:08)
[2017-02-17] MEDS: LIDOCAINE 5% TOPICAL PATCH TP SCH (10:11)
[2017-02-17] MEDS: PRENATAL VITAMINS W/ FOLIC ACID TABLET (FP) PO SCH (10:11)
[2017-02-17] MEDS: NICOTINE 14 MG/24 HOURS TOPICAL PATCH TD SCH (10:12)
[2017-02-17] MEDS: diphenhydrAMINE HCL 50 MG CAPSULE PO PRN (21:18)
[2017-02-17] MEDS: CYCLOBENZAPRINE HCL 10 MG TABLET (FP) PO PRN (21:18)
[2017-02-17] MEDS: MIRTAZAPINE 15 MG TABLET (FP) PO SCH (21:18)
[2017-02-17] MEDS: THIAMINE HCL 100 MG TABLET (FP) PO SCH (21:19)
[2017-02-17] MEDS: LIDOCAINE PATCH REMOVAL MC SCH (22:23)
[2017-02-18] MEDS: PRENATAL VITAMINS W/ FOLIC ACID TABLET (FP) PO SCH (10:28)
[2017-02-18] MEDS: LIDOCAINE 5% TOPICAL PATCH TP SCH (10:28)
[2017-02-18] MEDS: NICOTINE 14 MG/24 HOURS TOPICAL PATCH TD SCH (10:29)
[2017-02-18] MEDS: MIRTAZAPINE 15 MG TABLET (FP) PO SCH (21:19)
[2017-02-18] MEDS: THIAMINE HCL 100 MG TABLET (FP) PO SCH (21:19)
[2017-02-18] MEDS: diphenhydrAMINE HCL 50 MG CAPSULE PO PRN (21:20)
[2017-02-18] MEDS: CYCLOBENZAPRINE HCL 10 MG TABLET (FP) PO PRN (21:20)
[2017-02-18] MEDS: LIDOCAINE PATCH REMOVAL MC SCH (21:20)
[2017-02-19] MEDS: PRENATAL VITAMINS W/ FOLIC ACID TABLET (FP) PO SCH (09:48)
[2017-02-19] MEDS: LIDOCAINE 5% TOPICAL PATCH TP SCH (09:49)
[2017-02-19] MEDS: NICOTINE 14 MG/24 HOURS TOPICAL PATCH TD SCH (09:49)
[2017-02-19] MEDS: THIAMINE HCL 100 MG TABLET (FP) PO SCH (21:12)
[2017-02-19] MEDS: diphenhydrAMINE HCL 50 MG CAPSULE PO PRN (21:13)
[2017-02-19] MEDS: CYCLOBENZAPRINE HCL 10 MG TABLET (FP) PO PRN (21:13)
[2017-02-19] MEDS: MIRTAZAPINE 15 MG TABLET (FP) PO SCH (21:14)
[2017-02-19] MEDS: LIDOCAINE PATCH REMOVAL MC SCH (21:14)
[2017-02-20] MEDS: LIDOCAINE 5% TOPICAL PATCH TP SCH (09:50)
[2017-02-20] MEDS: PRENATAL VITAMINS W/ FOLIC ACID TABLET (FP) PO SCH (09:50)
[2017-02-20] MEDS: NICOTINE 14 MG/24 HOURS TOPICAL PATCH TD SCH (09:51)
[2017-02-20] MEDS: diphenhydrAMINE HCL 50 MG CAPSULE PO PRN (21:18)
[2017-02-20] MEDS: THIAMINE HCL 100 MG TABLET (FP) PO SCH (21:18)
[2017-02-20] MEDS: MIRTAZAPINE 15 MG TABLET (FP) PO SCH (21:18)
[2017-02-20] MEDS: CYCLOBENZAPRINE HCL 10 MG TABLET (FP) PO PRN (21:19)
[2017-02-20] MEDS: LIDOCAINE PATCH REMOVAL MC SCH (21:20)
[2017-02-21 06:46] VITALS: BP 142/71; PULSE 95; TEMP 98.3
--- NOTE | 2017-02-21 07:14 | PN ---
Psychiatric Progress Note Vital Signs: Vital Signs Period Temp Pulse Resp BP Sys/Robles Pulse Ox Last 24 Hr 98.3 F 95 18-18 142/71 Date of Session: 02/21/17 Chief Complaint:: Discharge Note HPI: Patient addressing Alcohol Dependence comorbid with Nicotine Dependence and Substance-Induced Mood Disorder ROS: GERD, chronic back pain were medically managed Current Medications: Active Medications Generic Name Dose Route Start Last Admin Trade Name Freq PRN Reason Stop Dose Admin Acetaminophen 650 mg 02/07/17 19:36 Tylenol - PO Q4H PRN PAIN Al Hydroxide/Mg Hydroxide 30 ml 02/07/17 19:36 Mylanta Oral Suspension - PO Q6H PRN DYSPEPSIA Cyclobenzaprine HCl 10 mg 02/07/17 19:37 02/20/17 21:19 Flexeril - PO 10 mg TID PRN Administration MUSCLE SPASMS Diphenhydramine HCl 50 mg 02/07/17 19:36 02/20/17 21:18 Benadryl - PO 50 mg HSMR1 PRN Administration INSOMNIA Eucalyptus/Menthol/Phenol/Sorbitol 1 each 02/07/17 19:36 Cepastat Lozenge - MM Q4H PRN SORE THROAT Guaifenesin 10 ml 02/07/17 19:36 Robitussin Dm - PO Q6H PRN COUGH Hydroxyzine Pamoate 50 mg 02/07/17 19:36 Vistaril - PO Q4H PRN AGITATION Ibuprofen 400 mg 02/07/17 19:36 Motrin - PO Q6H PRN SEVERE PAIN Lidocaine 1 patch 02/08/17 10:00 02/20/17 09:50 Lidoderm Patch - TP 1 patch DAILY CLARK Administration Loperamide HCl 4 mg 02/07/17 19:36 Imodium - PO Q6H PRN DIARRHEA Magnesium Citrate 300 ml 02/07/17 19:36 Citroma - PO Q48H PRN CONSTIPATION Magnesium Hydroxide 30 ml 02/07/17 19:36 Milk Of Magnesia - PO DAILY PRN CONSTIPATION Mirtazapine 45 mg 02/08/17 22:00 02/20/17 21:18 Remeron - PO 45 mg HS CLARK Administration Miscellaneous 1 each 02/07/17 22:00 02/20/17 21:20 Lidoderm Patch Removal MC 1 each DAILY@2200 CLARK Administration Nicotine 14 mg 02/08/17 10:00 02/20/17 09:51 Nicoderm Patch - TD Not Given DAILY CLARK Nicotine Polacrilex 2 mg 02/07/17 19:36 Nicorette Gum - BC Q2H PRN NICOTINE REPLACEMENT RX Multivit/Folic Acid/Iron 1 tab 02/08/17 10:00 02/20/17 09:50 Vitamins (Sjr) - PO 1 tab DAILY CLARK Administration Pseudoephedrine/Triprolidine 1 combo 02/07/17 19:36 Actifed - PO TID PRN NASAL CONGESTION Thiamine HCl 100 mg 02/07/17 22:00 02/20/17 21:18 Vitamin B1 - PO 100 mg HS CLARK Administration Current Side Effect: No Lab tests ordered: Yes Lab tests reviewed: Yes Provider note:: Patient has completed this program today. He has met his treatment goals and will continue to address his issues in outpatient treatment at [facility]. 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 He said that among the the things he learned are to be humble, to stay away from People, Places and Things. He responded well to Remeron 45 mg po HS. Script for 30 days supply of that medication is electronically transmitted to [facility] at [address] [place] [id number]. He is stable for discharge today Total face to face time:: 35 Mental Status Exam - Mental Status Exam Alert and Oriented to: Time, Place, Person Cognitive Function: Fair Patient Appearance: Well Groomed Mood: Hopeful, Euthymic Affect: Appropriate Patient Behavior: Cooperative Speech Pattern: Clear Voice Loudness: Normal Thought Process: Intact, Goal Oriented Thought Disorder: Not Present Hallucinations: Denies Suicidal Ideation: Denies Homicidal Ideation: Denies Insight/Judgement: Fair Sleep: Fair Appetite: Good Muscle strength/Tone: Normal Gait/Station: Normal Psychiatric Treatment Plan - Problem List (1) Alcohol dependence Current Visit: Yes (2) Nicotine dependence Current Visit: Yes Qualifiers: Nicotine product type: cigarettes Substance use status: in withdrawal Qualified Code(s): F17.213 - Nicotine dependence, cigarettes, with withdrawal (3) Substance induced mood disorder Current Visit: Yes (4) Chronic back pain Current Visit: Yes Qualifiers: Back pain location: low back pain Back pain laterality: bilateral Sciatica presence: without sciatica Qualified Code(s): M54.5 - Low back pain; G89.29 - Other chronic pain (5) GERD (gastroesophageal reflux disease) Current Visit: Yes Initial treatment plan: Patient is discharged today and referred to [facility] for outpatient treatment
[2017-02-21] MEDS: PRENATAL VITAMINS W/ FOLIC ACID TABLET (FP) PO SCH (09:51)
[2017-02-21] MEDS: NICOTINE 14 MG/24 HOURS TOPICAL PATCH TD SCH (09:51)
[2017-02-21] MEDS: LIDOCAINE 5% TOPICAL PATCH TP SCH (09:51)
== END 2017-02-21 10:00 | disposition home or self-care (01) | DRG 772 ==
LOC: YASAS 12:43 → Y3W 18:53
PROVIDERS: ADMIT Psychiatry & Neurology Psychiatry; ATTEND Psychiatry & Neurology Psychiatry
PROC: HZ42ZZZ Group Counseling for Substance Abuse Treatment, Cognitive-Behavioral (ICD-10-PCS; principal; 2017-02-07)
DX: F10.20 Alcohol dependence, uncomplicated (principal); F17.213 Nicotine dependence, cigarettes, with withdrawal; F19.24 Other psychoactive substance dependence with psychoactive substance-induced mood disorder; K21.9 Gastro-esophageal reflux disease without esophagitis; M54.5 Low back pain; G89.29 Other chronic pain; R00.0 Tachycardia, unspecified; E66.9 Obesity, unspecified; Z68.37 Body mass index [BMI] 37.0-37.9, adult
CPT/HCPCS: 36415; 80053; 85027; 86593; 90732; 93005; 93010; G0009